=== PATIENT | male | born 1955 | race African-American/Black ===

== ENCOUNTER 2019-03-26 02:10 | Emergency (ER) | payer MEDICAID ==
[2019-03-26 02:25] VITALS: BP 183/82
--- NOTE | 2019-03-26 03:38 | RADIOLOGY REPORT (SQ) ---
Chest single view on 03/26/2019 at 3:22 AM CLINICAL INDICATION: Cough COMPARISON: None FINDINGS: The lungs are clear. Cardiac, hilar and mediastinal contours are within normal limits. Pulmonary vascularity is within normal limits. No bony abnormality is noted. IMPRESSION: No active disease.
== END 2019-03-26 04:12 | disposition left against medical advice (07) ==
LOC: ER 02:10
DX: Z53.21 Procedure and treatment not carried out due to patient leaving prior to being seen by health care provider (principal); R05 Cough
CPT/HCPCS: 71045